=== PATIENT | female | born 1995 | race Caucasian/White ===

== ENCOUNTER 2021-01-04 21:44 | Emergency (ER) | payer MEDICAID, MEDICARE, OTHER ==
[~2021-01-04] VITALS: Ht 165.1 cm; Wt 87.5 kg
[~2021-01-04 21:44] MED LIST: ACYC5CRE2 TOP; NITR100C6 PO; ONDA8TAB9 PO; PREN1TAB79 PO
[2021-01-04] MEDS ORDERED: PENI250T2 PO (22:00)
[2021-01-04] MEDS ORDERED: NAPR-56 PO (22:00)
[2021-01-04] MEDS ORDERED: ibuprofen tablet 400 MG TABLET PO ONE (22:20)
[2021-01-04 22:22] VITALS: BP 102/69
== END 2021-01-04 22:32 | disposition home or self-care (01) ==
LOC: ER 21:45
DX: K08.89 Other specified disorders of teeth and supporting structures (principal); Z20.822 Contact with and (suspected) exposure to COVID-19; R68.84 Jaw pain; J02.9 Acute pharyngitis, unspecified; G40.909 Epilepsy, unspecified, not intractable, without status epilepticus; Z88.2 Allergy status to sulfonamides; Z79.2 Long term (current) use of antibiotics; Z79.899 Other long term (current) drug therapy
CPT/HCPCS: 36415; 99283; U0003; U0005